=== PATIENT | female | born 1985 ===

== ENCOUNTER 2023-02-07 12:31 | Outpatient (CLI) | payer OTHER | END 2023-02-07 12:44 | disposition home or self-care (01) | LOC: MRI 12:31 | DX: M93.272 Osteochondritis dissecans, left ankle and joints of left foot (principal) | CPT/HCPCS: 73718 ==

== ENCOUNTER → 2023-02-19 | Outpatient (CLI) | payer OTHER | END | disposition home or self-care (01) | LOC: MAMO-SONO 09:31 | PROVIDERS: ATTEND Obstetrics & Gynecology | DX: N60.11 Diffuse cystic mastopathy of right breast (principal); N60.12 Diffuse cystic mastopathy of left breast ==

== ENCOUNTER 2025-09-28 13:47 | Outpatient (CLI) | payer OTHER | END 2025-09-28 13:59 | disposition home or self-care (01) | LOC: MAMO-SONO 13:47 | PROVIDERS: ATTEND Obstetrics & Gynecology | DX: N60.11 Diffuse cystic mastopathy of right breast (principal); N60.12 Diffuse cystic mastopathy of left breast; R10.21 Pelvic and perineal pain right side; R10.22 Pelvic and perineal pain left side ==